=== PATIENT | female | born 1965 | race Caucasian/White ===

== ENCOUNTER 2017-01-02 16:34 | Emergency (ER) | payer SELFPAY ==
--- NOTE | 2017-01-02 17:05 | ED.PDOC ---
History of Present Illness - General Chief Complaint: Diabetic Complaint Stated Complaint: Not feeling well with blood sugar >600 Time Seen by Provider: 01/02/17 17:01 Source: patient, RN notes reviewed, Vital Signs reviewed Exam Limitations: no limitations - History of Present Illness Initial Comments: Patient comes in with c/o of just not feeling well. She has a WALLACE, dizzy, nausea , bloated and swelling. On Thursday and Thursday her blood sugar was >600. She slept most of and this morning. Still feeling bad today so she came in to be seen. She has not checked her blood sugar today. + increased thirst. + SOB , no chest pain, Numbness in her hands. She is only taking Metformin for her Diabetes. Timing/Duration: getting worse - past 5 days Severity: severe Improving Factors: medication Worsening Factors: nothing Associated Symptoms: diaphoresis, headaches, malaise, nausea/vomiting, shortness of breath, weakness Allergies/Adverse Reactions: Allergies Levofloxacin [From Levaquin] Allergy (Intermediate, Verified 08/18/15 10:28) Hives Penicillin G Allergy (Intermediate, Verified 08/18/15 10:28) Rash Home Medications: Ambulatory Orders Hydrocodone-Acetaminophen [Lortab] 1 tab PO PRN PRN 04/09/13 Metformin HCl 1,000 mg PO TID 04/09/13 Review of Systems - Review of Systems Constitutional: States: diaphoresis, malaise. Denies: chills, fever EENTM: States: no symptoms reported Respiratory: States: short of breath. Denies: cough Cardiology: States: edema. Denies: chest pain, palpitations, syncope Gastrointestinal/Abdominal: States: nausea, other - bloating. Denies: abdominal pain, diarrhea, vomiting Genitourinary: States: no symptoms reported Musculoskeletal: States: no symptoms reported Skin: States: no symptoms reported Neurological: States: numbness - bilateral hands after waking up today Endocrine: States: increased thirst, increased urine Hematologic/Lymphatic: States: no symptoms reported Past Medical History (General) - Patient Medical History Hx Seizures: No Hx Stroke: No Hx Dementia: No Hx Asthma: No Hx of COPD: No Hx Cardiac Disorders: No Hx Congestive Heart Failure: No Hx Pacemaker: No Hx Hypertension: No Hx Thyroid Disease: No Hx Diabetes: Yes Hx Gastroesophageal Reflux: No Hx Renal Disease: No Hx Cancer: No Hx of HIV: No Hx Hepatitis C: No Hx MRSA: Yes MRSA Source:: Wound - Vaccination History Hx Tetanus, Diphtheria Vaccination: No Hx Influenza Vaccination: No Hx Pneumococcal Vaccination: Yes - 2013 - Social History Hx Tobacco Use: Yes Hx Alcohol Use: No Hx Substance Use: No Hx Substance Use Treatment: No Hx Depression: No Hx Physical Abuse: No Hx Emotional Abuse: No - Female History Patient : No Family Medical History - Family History Mother Family History: No Known Living Status: Still Living Hx Family Diabetes: Yes Physical Exam - Physical Exam General Appearance: Alert, No apparent distress, Ill Appearing, Obese Neck: non-tender, full range of motion, supple, normal inspection Respiratory: chest non-tender, lungs clear, normal breath sounds, no respiratory distress, no accessory muscle use Cardiovascular/Chest: regular rate, rhythm, no gallop, no murmur Gastrointestinal/Abdominal: normal bowel sounds, non tender, soft, other - obese Extremity: normal range of motion, non-tender, pedal edema - 1+ Bilateral ankles Neurologic: no motor/sensory deficits, alert, normal mood/affect, oriented x 3 Skin Exam: normal color, warm/dry Comments: Vital Signs - 24 hr 01/02/17 16:40 Temperature 98.0 F Pulse Rate [ 76 Left Radial] Respiratory 20 Rate Blood Pressure 136/78 [Left Arm] O2 Sat by Pulse 95 Oximetry Progress - Progress Progress: 01/02/17 19:02 Patient reports she is feeling a little better but still quite sleepy. Will give a 2nd L of NS and see if she continues to improve. She is agreeable with plan. 01/02/17 20:02 Patient reports she is feeling much better. She has been up to the bathroom. She has ~1/2L of saline left. When that is done plan to d/c home with close follow up with her PCP regarding her diabetes. - Results/Orders Results/Orders: Laboratory Tests 01/02/17 01/02/17 01/02/17 17:23 17:23 17:23 WBC 6.3 RBC 4.06 L Hgb 12.0 Hct 36.1 MCV 88.9 MCH 29.5 MCHC 33.2 RDW 14.3 Plt Count 199 MPV 8.1 Absolute Neuts (auto) 3.50 Absolute Lymphs (auto) 2.10 Absolute Monos (auto) 0.50 Absolute Eos (auto) 0.20 Absolute Basos (auto) 0.00 Neutrophils % 55.2 Lymphocytes % 33.7 Monocytes % 7.3 Eosinophils % 3.1 Basophils % 0.7 Sodium 137 Potassium 3.9 Chloride 100 L Carbon Dioxide 29 Anion Gap 11.9 L BUN 8 Creatinine 0.51 L BUN/Creatinine Ratio 15.7 POC Glucose 142 H Random Glucose 173 H Serum Osmolality 276.3 Calcium 8.6 Total Bilirubin 0.3 AST 27 ALT 29 Alkaline Phosphatase 60 Serum Total Protein 7.0 Albumin 3.4 Globulin 3.6 H Albumin/Globulin Ratio 0.9 L Serum Ketones Negative Laboratory Last Values WBC 6.3 K/mm3 (4.8-10.8) 01/02/17: RBC 4.06 M/mm3 (4.20-5.40) L 01/02/17 17: Hgb 12.0 gm/dL (12.0-16.0) 01/02/17 17: Hct 36.1 % (36.0-47.0) 01/02/17 17: MCV 88.9 fl (81.0-99.0) 01/02/17 17: MCH 29.5 pg (27.0-31.0) 01/02/17: MCHC 33.2 g/dL (33.0-37.0) 01/02/17: RDW 14.3 % (11.5-14.5) 01/02/17 17:23 Plt Count 199 K/mm3 (130-400) 01/02/17 17: MPV 8.1 fl (7.40-10.4) 01/02/17 17:23 Absolute Neuts (auto) 3.50 K/uL (1.8-6.8) 01/02/17 17: Absolute Lymphs (auto) 2.10 K/uL (1.0-3.4) 01/02/17 17: Absolute Monos (auto) 0.50 K/uL (0.2-0.8) 01/02/17 17:23 Absolute Eos (auto) 0.20 K/uL (0.0-0.4) 01/02/17 17: Absolute Basos (auto) 0.00 K/uL (0.0-0.1) 01/02/17 17: Neutrophils % 55.2 % (42.0-78.0) 01/02/17 17: Lymphocytes % 33.7 % (20.0-50.0) 01/02/17 17: Monocytes % 7.3 % (2.0-9.0) 01/02/17 17: Eosinophils % 3.1 % (1.0-5.0) 01/02/17 17: Basophils % 0.7 % (0.0-2.0) 01/02/17 17: Sodium 137 mmol/L (135-145) 01/02/17 17: Potassium 3.9 mmol/L (3.6-5.0) 01/02/17 17: Chloride 100 mmol/L (101-111) L 01/02/17 17: Carbon Dioxide 29 mmol/L (21-31) 01/02/17 17: Anion Gap 11.9 (12-18) L 01/02/17 17: BUN 8 mg/dL (7-18) 01/02/17 17: Creatinine 0.51 mg/dL (0.6-1.3) L 01/02/17 17: BUN/Creatinine Ratio 15.7 (10-20) 01/02/17 17: POC Glucose 142 mg/dL (70-105) H 01/02/17 17: Random Glucose 173 mg/dL (70-105) H 01/02/17 17: Serum Osmolality 276.3 mOsm/L (275-295) 01/02/17 17: Calcium 8.6 mg/dL (8.4-10.2) 01/02/17 17: Total Bilirubin 0.3 mg/dL (0.2-1.0) 01/02/17 17: AST 27 IU/L (10-42) 01/02/17 17: ALT 29 IU/L (10-60) 01/02/17 17: Alkaline Phosphatase 60 IU/L (42-121) 01/02/17 17:23 Serum Total Protein 7.0 gm/dL (6.4-8.2) 01/02/17 17: Albumin 3.4 g/dl (3.2-5.5) 01/02/17 17:23 Globulin 3.6 gm/dL (2.3-3.5) H 01/02/17 17:23 Albumin/Globulin Ratio 0.9 (1.1-1.9) L 01/02/17 17:23 Urine Color Yellow (Yellow) 01/02/17 20:35 Urine Appearance Clear (Clear) 01/02/17 20:35 Urine pH 8.5 (4.5-7.8) H 01/02/17 20:35 Ur Specific [place] 1.015 (1.005-1.030) 01/02/17 20:35 Urine Protein 30 mg/dL 01/02/17 20:35 Urine Glucose (UA) 100 mg/dL (Negative) H 01/02/17 20:35 Urine Ketones Trace mg/dL (NEGATIVE) 01/02/17 20:35 Urine Blood Negative (Negative) 01/02/17 20:35 Urine Nitrite Negative 01/02/17 20:35 Urine Bilirubin Small (NEGATIVE) H 01/02/17 20:35 Urine Urobilinogen >= 8.0 mg/dL (0.2-1.0) H 01/02/17 20:35 Ur Leukocyte Esterase Negative (Negative) 01/02/17 20:35 Urine RBC 0-1 /hpf 01/02/17 20:35 Urine WBC 0-1 /hpf 01/02/17 20:35 Ur Epithelial Cells 5-10 /hpf 01/02/17 20:35 Urine Bacteria 1+ 01/02/17 20:35 Urine Mucus Small 01/02/17 20:35 Serum Ketones Negative 01/02/17 17:23 Departure - Departure Clinical Impression: Dehydration Diabetes mellitus Qualifiers: Diabetes mellitus type: type 2 Diabetes mellitus complication status: without complication Qualified Code(s): E11.9 - Type 2 diabetes mellitus without complications Time of Disposition: 20:34 Disposition: Discharge to Home or Self Care Condition: Good Departure Forms: ED Discharge - Pt. Copy, Patient Portal Self Enrollment Instructions: Type 2 Diabetes, DI for Dehydration -- Adult Diet: diabetic diet Activity: increase activity as tolerated Referrals: ЕКАТЕРИНА BRADFORD [Primary Care Provider] - 1-2 Days Home Medications: Ambulatory Orders Hydrocodone-Acetaminophen [Lortab] 1 tab PO PRN PRN 04/09/13 Metformin HCl 1,000 mg PO TID 09/28/13 Additional Instructions: Continue double dose of Metformin until follow up.
[2017-01-02] MEDS ORDERED: SODIUM CHLORIDE 0.9% 1000ML 1,000 ML IVS ONE ×2 (17:08→19:01)
[2017-01-02] MEDS ORDERED: ONDANSETRON INJ 4 MG/2 ML VIAL IV ONE (17:08)
[2017-01-02 19:38] VITALS: O2SAT 95
[2017-01-02 21:13] VITALS: BP 135/84; TEMP 97.8
== END 2017-01-02 21:05 | disposition home or self-care (01) ==
LOC: ER 16:34
DX: E86.0 Dehydration (principal); E11.9 Type 2 diabetes mellitus without complications; R06.02 Shortness of breath; Z79.84 Long term (current) use of oral hypoglycemic drugs; Z88.1 Allergy status to other antibiotic agents; Z87.891 Personal history of nicotine dependence
CPT/HCPCS: 36415; 80053; 81001; 82009; 82948; 85025; J2405; J7030

== ENCOUNTER 2018-02-04 10:15 | Emergency (ER) | payer SELFPAY ==
[2018-02-04 10:26] VITALS: BP 148/90
--- NOTE | 2018-02-04 11:13 | ED.PDOC ---
History of Present Illness - General Chief Complaint: ENT Problem Stated Complaint: Sore throat Time Seen by Provider: 02/04/18 11:05 Source: patient Exam Limitations: no limitations - History of Present Illness Initial Comments: Ling Yanez 52 y/o female came to ER with achy throat 2 days ago .Had seen primary Md was prescribed Cipro and had taken it last 2 days not better.No fever ,but hurts to swallow.No N/V. Timing/Duration: gradual, other - see hpi Severity: moderate EENT Location: throat Presenting Symptoms: achy throat Improving Factors: nothing Worsening Factors: eating Associated Symptoms: other - see hpi Allergies/Adverse Reactions: Allergies Levofloxacin [From Levaquin] Allergy (Intermediate, Verified 08/18/15 10:28) Hives Penicillin G Allergy (Intermediate, Verified 08/18/15 10:28) Rash Home Medications: Ambulatory Orders Hydrocodone-Acetaminophen [Lortab] 1 tab PO PRN PRN 04/09/13 Metformin HCl 1,000 mg PO TID 04/09/13 Review of Systems - Review of Systems Constitutional: States: no symptoms reported EENTM: States: see HPI Respiratory: States: no symptoms reported Cardiology: States: no symptoms reported Gastrointestinal/Abdominal: States: no symptoms reported Genitourinary: States: no symptoms reported Skin: States: no symptoms reported All other Systems: Reviewed and Negative, No Change from Baseline Past Medical History (General) - Patient Medical History Hx Seizures: No Hx Stroke: No Hx Dementia: No Hx Asthma: No Hx of COPD: No Hx Cardiac Disorders: No Hx Congestive Heart Failure: No Hx Pacemaker: No Hx Hypertension: No Hx Thyroid Disease: No Hx Diabetes: Yes Hx Gastroesophageal Reflux: No Hx Renal Disease: No Hx Cancer: No Hx of HIV: No Hx Hepatitis C: No Hx MRSA: Yes MRSA Source:: Wound Surgical History: other - - Vaccination History Hx Tetanus, Diphtheria Vaccination: No Hx Influenza Vaccination: No Hx Pneumococcal Vaccination: Yes - 2013 - Social History Hx Tobacco Use: Yes Hx Alcohol Use: No Hx Substance Use: Yes Hx Substance Use Treatment: No Hx Depression: No Hx Physical Abuse: No Hx Emotional Abuse: No - Female History Patient : No Family Medical History - Family History Mother Family History: No Known Living Status: Still Living Hx Family Diabetes: Yes - multiple family members Hx Family Cancer: Yes - throat-dad Physical Exam - Physical Exam General Appearance: Alert, Comfortable, No apparent distress Eye Exam: bilateral normal Ear Exam: bilateral ear: auricle normal, canal normal, TM normal Nasal Exam: normal inspection Throat Exam: normal mouth inspection, tonsillar exudate - left side Neck: non-tender, full range of motion, supple, normal inspection, trachea midline Cardiovascular/Respiratory: regular rate, rhythm, no M/R/G, normal peripheral pulses, no JVD, normal breath sounds Abdominal Exam: non-tender, no organomegaly Neurologic: no motor/sensory deficits, alert, oriented x 3 Skin Exam: normal color, warm/dry Progress - Progress Progress: 02/04/18 11:16 Laboratory Tests 02/04/18 10:40 Group A Strep Rapid Negative 02/04/18 11:16 Vital Signs - 8 hr 02/04/18 10:23 Temperature 98.7 F Pulse Rate [ 90 Left Radial] Respiratory 20 Rate Blood Pressure 148/90 [Right Arm] O2 Sat by Pulse 94 L Oximetry Departure - Departure Clinical Impression: Tonsillitis Time of Disposition: 11:18 Disposition: Discharge to Home or Self Care Condition: Good Departure Forms: ED Discharge - Pt. Copy, Patient Portal Self Enrollment Instructions: Sore Throat, Adult (DC) Referrals: ЕКАТЕРИНА BRADFORD [Primary Care Provider] - 1-2 Weeks Home Medications: Ambulatory Orders Hydrocodone-Acetaminophen [Lortab] 1 tab PO PRN PRN 04/09/13 Metformin HCl 1,000 mg PO TID 04/09/13 Additional Instructions: Finish your oral antibiotics prescribed by your md and continue with salt water gargle;may take Tylenol 500mg every 6 hours as needed for pain
[2018-02-04] MEDS ORDERED: DEXAMETHASONE INJ 4 MG/ML VIAL IM ONE (11:18)
[2018-02-04 11:48] VITALS: TEMP 98; O2SAT 95
== END 2018-02-04 11:42 | disposition home or self-care (01) ==
LOC: ER 10:15
DX: J03.90 Acute tonsillitis, unspecified (principal); Z88.0 Allergy status to penicillin; Z87.891 Personal history of nicotine dependence
CPT/HCPCS: 87070; 87880; J1100

== ENCOUNTER → 2018-05-25 | Outpatient (CLI) | payer OTHER ==
--- NOTE | 2018-05-26 12:38 | MAM ---
EXAM DESCRIPTION: 3D Screening BILATERAL : Digital Mammography. CLINICAL HISTORY: 52 years Female SCREENING . No complaints or personal history of breast cancer. Mother with breast cancer. Remote family history of breast cancer. Postmenopausal. Childbirth. No HRT. Lifetime risk of developing breast cancer (Tyrer-Cuzick model)(%): 14.0. COMPARISON: Baseline study at this facility. TECHNIQUE: Bilateral CC and MLO projection full-field images, digital tomosynthesis mammographic technique. Bilateral digital 2-D full-field MLO images. CAD not available for tomosynthesis or 2-D images. FINDINGS: The breast parenchymal density pattern is: Scattered areas of fibroglandular density. No skin thickening or nipple retraction. Left axillary lymph nodes. No new focal, stellate mass or density, focal asymmetry , and no suspicious microcalcifications bilaterally. IMPRESSION: Benign exam. BIRAD CATEGORY: 2 BENIGN FINDINGS. RECOMMENDATIONS: FOLLOW UP: Routine digital bilateral mammographic screening, one year interval from May 2018. Written communication explaining the IMPRESSION and follow-up, will be mailed to the patient and referring health care provider. According to the [employer], yearly mammograms are recommended starting at age 40 and continuing as long as a woman is in good health. Any breast change noted on a breast self-exam should be reported promptly to the patient's healthcare provider. Breast MRI is recommended for women with an approximately 20-25% or greater lifetime risk of breast cancer, including women with a strong family history of breast or ovarian cancer and women who have been treated for Hodgkin's disease. A negative mammographic report should not delay tissue diagnosis in patients with significant clinical history or physical findings. Extremely dense breast tissue limits the sensitivity of digital mammography. Electronically signed by: Antonio Augustin MD 05/26/2018 12:36 PM [facility]
== END ==
LOC: MAMMO 09:38
PROVIDERS: ATTEND Family Medicine
DX: Z12.31 Encounter for screening mammogram for malignant neoplasm of breast (principal)

== ENCOUNTER 2018-08-10 05:19 | Inpatient (IN) | payer SELFPAY ==
[2018-08-10] MEDS ORDERED: IPRATROPIUM/ALBUTEROL 3 ML VIAL NEB ONE ×4 (05:22→06:56)
--- NOTE | 2018-08-10 06:03 | RAD ---
EXAM: Two view chest. INDICATION: Shortness of breath. COMPARISON: Chest x-ray: 05/28/2015. FINDINGS: Cardiac silhouette: Unremarkable. Sanjuanita: Unremarkable. Lobar consolidation: None. Pleural effusion: None. Pneumothorax: None. Other: None. Bones: Unremarkable. Other: None. IMPRESSION: 1. No acute cardiopulmonary process. Electronically signed by: Isaac Andrew MD 08/10/2018 6:02 AM [facility] Workstation: [id number]
[2018-08-10] MEDS ORDERED: IBUPROFEN 200 MG TAB PO ONE (06:55)
--- NOTE | 2018-08-10 06:58 | ED.PDOC ---
History of Present Illness - General Source: patient Exam Limitations: no limitations - History of Present Illness Initial Comments: the patient a 53-year-old female presenting to the emergency room secondary to shortness of breath as well as fevers and body aches for the last 24 hours. She has had a cough that is nonproductive. No history of significant lung disease according to her. No chest pain. She does have a mild sore throat. No syncope or near syncope. Initial oxygen saturations ranged from 80-86% on room air. Timing/Duration: 24 hours Severity: moderate Improving Factors: nothing Worsening Factors: nothing Associated Symptoms: cough, diaphoresis, fever/chills, loss of appetite, malaise, shortness of breath <Juancarlos Kim - Last Filed: 08/10/18 06:56> <Bar Vivar - Last Filed: 08/10/18 08:36> - General Chief Complaint: Respiratory Problem Stated Complaint: SOB, congestion, vomiting, chest discomfort, sinus Time Seen by Provider: 08/10/18 05:22 - History of Present Illness Allergies/Adverse Reactions: Allergies Levofloxacin [From Levaquin] Allergy (Intermediate, Verified 08/18/15 10:28) Hives Penicillin G Allergy (Intermediate, Verified 08/18/15 10:28) Rash Home Medications: Ambulatory Orders HYDROcodone 10MG/APAP 325MG [[place] 10/325] 1 tab PO PRN 08/10/18 Metformin HCl 1,000 mg PO BID 08/10/18 Review of Systems - Review of Systems Constitutional: States: chills, diaphoresis, fever, malaise EENTM: States: nose congestion, throat pain Respiratory: States: cough, short of breath Cardiology: States: no symptoms reported Gastrointestinal/Abdominal: States: nausea Genitourinary: States: no symptoms reported Musculoskeletal: States: no symptoms reported - generalized body aches Skin: States: no symptoms reported Neurological: States: headache Endocrine: States: no symptoms reported All other Systems: No Change from Baseline <Juancarlos Kim - Last Filed: 08/10/18 06:56> Past Medical History (General) - Patient Medical History Hx Seizures: No Hx Stroke: No Hx Dementia: No Hx Asthma: No Hx of COPD: No Hx Cardiac Disorders: No Hx Congestive Heart Failure: No Hx Pacemaker: No Hx Hypertension: No Hx Thyroid Disease: No Hx Diabetes: Yes Hx Gastroesophageal Reflux: No Hx Renal Disease: No Hx Cancer: No Hx of HIV: No Hx Hepatitis C: No Hx MRSA: Yes MRSA Source:: Wound Surgical History: other - Vaccination History Hx Tetanus, Diphtheria Vaccination: Yes Hx Influenza Vaccination: No Hx Pneumococcal Vaccination: Yes - Social History Hx Tobacco Use: Yes Hx Alcohol Use: No Hx Substance Use: Yes Hx Substance Use Treatment: No Hx Depression: No Hx Physical Abuse: No Hx Emotional Abuse: No - Female History Patient : No <Juancarlos Kim - Last Filed: 08/10/18 06:56> Family Medical History - Family History Mother Family History: No Known Living Status: Still Living Hx Family Diabetes: Yes - multiple family members Hx Family Cancer: Yes - throat-dad <Juancarlos Kim - Last Filed: 08/10/18 06:56> Physical Exam - Physical Exam General Appearance: Alert, Anxious Eye Exam: bilateral normal Ears, Nose, Throat: nasal congestion, pharyngeal erythema Neck: non-tender, full range of motion Respiratory: lungs clear, normal breath sounds, no respiratory distress, no accessory muscle use Cardiovascular/Chest: normal peripheral pulses, regular rate, rhythm, no edema, tachycardia Peripheral Pulses: radial,right: 2+, radial,left: 2+ Gastrointestinal/Abdominal: non tender, soft Rectal Exam: deferred Back Exam: no CVA tenderness, no vertebral tenderness Extremity: non-tender, normal inspection, no pedal edema, normal capillary refill Neurologic: claims adjuster II-XII nml as tested, alert, normal mood/affect, oriented x 3 Skin Exam: normal color Comments: Vital Signs - 24 hr 08/10/18 08/10/18 08/10/18 05:24 05:28 06:00 Temperature 100.9 F H Pulse Rate 105 H Pulse Rate [ 124 H 113 H monitor] Respiratory 24 28 H Rate Blood Pressure 139/113 113/85 [Left Arm] O2 Sat by Pulse 96 93 L Oximetry <Juancarols Kim - Last Filed: 08/10/18 06:56> Progress - Progress Progress: 08/10/18 06:58 the patient is a 53-year-old female presenting to the emergency room secondary to shortness of breath and fevers. Chest x-ray is reassuring however the patient does have some significant hypoxia upon arrival. She has received a DuoNeb treatment and will be receiving another. If she is unable to hold her oxygen levels with breathing treatments and she will likely need to be put in for supplemental oxygen while continuing her Tamiflu. Some laboratory work is still pending at this time. The patient will be handed off to the oncoming ER physician. <Juancarlos Kim - Last Filed: 08/10/18 06:56> - Results/Orders Results/Orders: 08/10/18 05:45 BLOOD CULTURE Stat EKG STAT 08/10/18 07:27 ABG [Arterial Blood Gas] Stat 08/10/18 08:32 Azithromycin IV [Zithromax IV] 500 mg Sodium Chloride 0.9% 250Ml [NS 250ml] 250 ml IVPB ONCE 08/10/18 08:34 ED Intent to Admit Routine Laboratory Results - last 24 hr 08/10/18 08/10/18 08/10/18 05:45 05:45 05:45 WBC 9.0 RBC 5.04 Hgb 14.7 Hct 44.8 MCV 88.9 MCH 29.2 MCHC 32.9 L RDW 14.0 Plt Count 195 MPV 8.0 Absolute Neuts (auto) 7.90 H Absolute Lymphs (auto) 0.60 L Absolute Monos (auto) 0.60 Absolute Eos (auto) 0.00 Absolute Basos (auto) 0.00 Neutrophils % 87.2 H Lymphocytes % 6.4 L Monocytes % 6.2 Eosinophils % 0.0 L Basophils % 0.2 PT 9.3 INR 0.93 PTT (SP) 26.5 D-Dimer, Quantitative 0.50 H pCO2 pO2 HCO3 ABG pH ABG O2 Saturation ABG Base Excess ABG Deoxyhemoglobin Oxyhemoglobin % Carboxyhemoglobin % Methemoglobin % Sat Calc Total Hemoglobin Sodium 130 L Potassium 4.0 Chloride 96 L Carbon Dioxide 25 Anion Gap 13.0 BUN 8 Creatinine 0.50 L BUN/Creatinine Ratio 16.0 Random Glucose 276 H Serum Osmolality Not Reportable Lactic Acid Calcium 8.7 Total Bilirubin 0.4 AST 37 ALT 21 Alkaline Phosphatase 69 Creatine Kinase 923 H* CK-MB (CK-2) 4.8 H* CK-MB (CK-2) % 0.52 Troponin I < 0.02 B-Natriuretic Peptide 44.8 Serum Total Protein 8.3 H Albumin 3.8 Globulin 4.5 H Albumin/Globulin Ratio 0.8 L 01/29/19 01/29/19 05:45 07:40 WBC RBC Hgb Hct MCV MCH MCHC RDW Plt Count MPV Absolute Neuts (auto) Absolute Lymphs (auto) Absolute Monos (auto) Absolute Eos (auto) Absolute Basos (auto) Neutrophils % Lymphocytes % Monocytes % Eosinophils % Basophils % PT INR PTT (SP) D-Dimer, Quantitative pCO2 47 H pO2 61 L HCO3 25.4 ABG pH 7.360 ABG O2 Saturation 90.5 L ABG Base Excess 0.2 ABG Deoxyhemoglobin 9.3 H Oxyhemoglobin % 88.2 L Carboxyhemoglobin % 0.7 Methemoglobin % Sat 1.9 H Calc Total Hemoglobin 11.0 L Sodium Potassium Chloride Carbon Dioxide Anion Gap BUN Creatinine BUN/Creatinine Ratio Random Glucose Serum Osmolality Lactic Acid 1.2 Calcium Total Bilirubin AST ALT Alkaline Phosphatase Creatine Kinase CK-MB (CK-2) CK-MB (CK-2) % Troponin I B-Natriuretic Peptide Serum Total Protein Albumin Globulin Albumin/Globulin Ratio - EKG/XRAY/CT EKG: Sinus, Tachy, nonspecific ST T wave Chg Comments: HR-105 XRAY: chest - no acute abnormalities CT Ordered: Yes - out of order CT-machine <Bar Vivar - Last Filed: 08/10/18 08:36> Departure <Juancarlos Kim - Last Filed: 08/10/18 06:56> - Departure Time of Disposition: 08:34 <Bar Vivar - Last Filed: 08/10/18 08:36> - Departure Clinical Impression: Influenza, Hypoxia Disposition: Admit Patient Condition: Fair Departure Forms: Patient Portal Self Enrollment Referrals: ЕКАТЕРИНА BRADFORD [Primary Care Provider] - 1-2 Weeks Home Medications: Ambulatory Orders HYDROcodone 10MG/APAP 325MG [[place] 10/325] 1 tab PO PRN 08/10/18 Metformin HCl 1,000 mg PO BID 08/10/18 Decision To Admit - Decistion To Admit Decision to Admit Reason: Admit from ER Decision to Admit Date: 08/10/18 - D/W gavin Vora-ANP/hospitalist Decision to Admit Time: 08:33 <Bar Vivar - Last Filed: 08/10/18 08:36>
[2018-08-10] MEDS ORDERED: OSELTAMIVIR 75 MG CAP PO ONE (07:40)
[2018-08-10] MEDS ORDERED: AZITHROMYCIN IV 500 MG in SODIUM CHLORIDE 0.9% 250ML 250 ML IVPB ONE (08:32)
[2018-08-10] MEDS ORDERED: AZITHROMYCIN IV 500 MG VIAL IVPB ONE (08:36)
[2018-08-10] MEDS ORDERED: LEVALBUTEROL NEBS 1.25 MG/3 ML VIAL NEB ONE (08:36)
[2018-08-10] MEDS ORDERED: SODIUM CHLORIDE 0.9% 250ML 250 ML ONE (08:37)
--- NOTE | 2018-08-10 08:42 | HP ---
SUPERVISING PHYSICIAN: Rock Wood MD CHIEF COMPLAINT: Shortness of breath. HISTORY OF PRESENT ILLNESS: This is a 53-year-old female who came to the Emergency Room early this morning due to shortness of breath, fever and body aches over the last 24 hours or so. She states yesterday is when she started feeling ill. She states her fever had been up as high as 103. She states her boyfriend had flu for the last 10 days or so. When she came in, she was noted to be hypoxic with O2 saturation anywhere from 80% to 86%. The patient has a history of smoking usually one pack per day, however, starting with the New Year, she has gone down to about one cigarette per day. Her labs were reviewed and she has a normal white count, but she does have a left shift of 87%. She has a normal lactate at 1.2. CK is elevated at 923. Sodium 130, potassium 4.0, chloride 96, CO2 25. BUN and creatinine are normal. Glucose elevated at 276. Calcium 8.7. Due to the hypoxia, she was referred for admission. At time of examination, the patient is visibly dyspneic, but alert and oriented and pleasant. PAST MEDICAL HISTORY: 1. Left knee pain secondary to osteoarthritis. 2. Diabetes. PAST SURGICAL HISTORY: 1. I&D on her chest from MRSA infection. 2. Right total knee arthroplasty. CURRENT MEDICATIONS: 1. Metformin. 2. Hydrocodone. ALLERGIES: PENICILLIN, LEVAQUIN. FAMILY HISTORY: Mother has breast cancer and had bilateral mastectomies. Brother of unknown cause. She does not know her father's history. SOCIAL HISTORY: The patient has a history of smoking one pack per day and has gone down on this to one cigarette per day. No significant alcohol or illicit drug use. REVIEW OF SYSTEMS: CONSTITUTIONAL: Positive for fever and chills. No recent weight loss or weight gain. Positive for malaise. HEENT: No headaches, vision changes, ear pain or throat pain. She does have nasal congestion. RESPIRATORY: Positive for cough. No hemoptysis or pleuritic chest pain. Positive for shortness of breath. CARDIOVASCULAR: No chest pain, palpitations or peripheral edema. GASTROINTESTINAL: No nausea, vomiting, diarrhea, constipation or abdominal pain. GENITOURINARY: No dysuria, frequency or flank pain. HEMATOLOGIC: No easy bruising and no transfusion reaction. MUSCULOSKELETAL: Left knee pain, but no other joint pain, no joint swelling. No muscle cramps. ENDOCRINE: No polydipsia, polyuria or polyphagia. No heat or cold intolerance. PHYSICAL EXAMINATION: VITAL SIGNS: Blood pressure 130/71. Heart rate 101. Respiratory rate 24. Temperature 100.4. Oxygen saturation 93% on 2 liters via nasal cannula. GENERAL: Ms. Yanez is a 53-year-old female with mild to moderate respiratory distress as above. NEUROLOGIC: The patient is alert and oriented. CHEST: Lungs are diminished in the bases with mild bibasilar rales. There is no active wheezing. CARDIOVASCULAR: Regular rate and rhythm, which is sinus tachycardia. ABDOMEN: Soft, obese. Positive bowel sounds. No tenderness to palpation. GENITOURINARY: Deferred. EXTREMITIES: Lower extremities with no edema. Pulses 2+. Capillary refill is less than 2 seconds. DIAGNOSTICS: Labs and films are as discussed in history of present illness. ASSESSMENT: 1. Acute bronchitis. 2. Influenza type A. 3. Hypoxemic respiratory failure. 4. Diabetes mellitus, type 2. PLAN: We will admit the patient and place on supplemental oxygen and start on some breathing treatments. She is not actively wheezing, so I am not going to start on any steroids. I am going to put her on scheduled Tamiflu and empiric antibiotics for bacterial bronchitis. We will also order DVT and GI ulcer prophylaxis as well. [id number]
[2018-08-10] MEDS: IV SET AND CAP CHANGE INJ INJ SCH (10:30)
[2018-08-10] MEDS ORDERED: HYDROcodone 10MG/APAP 325MG 1 EA TAB PO SCH (12:30)
[2018-08-10] MEDS: HYDROcodone 10MG/APAP 325MG 1 EA TAB PO PRN ×2 (13:14→19:40)
[2018-08-10] MEDS: ENOXAPARIN SODIUM 40 MG/0.4 ML SYG SUBCU SCH (13:14)
[2018-08-10] MEDS: IPRATROPIUM/ALBUTEROL 3 ML VIAL INH SCH ×3 (13:30→20:17)
[2018-08-10] MEDS ORDERED: MORPHINE SULFATE INJ 10 MG/ML VIAL ONE (14:53)
[2018-08-10] MEDS: MORPHINE SULFATE INJ 10 MG/ML VIAL IV PRN ×3 (15:07→23:39)
[2018-08-10] MEDS: metFORMIN HCL 500 MG TAB PO SCH (18:12)
[2018-08-10] MEDS: OSELTAMIVIR 75 MG CAP PO SCH (20:35)
[2018-08-10] MEDS: SODIUM CHLORIDE 0.9% (FLUSH) 10 ML SYG IV PRN (23:40)
[2018-08-11] MEDS: IPRATROPIUM/ALBUTEROL 3 ML VIAL INH SCH ×7 (00:09→23:53)
[2018-08-11] MEDS: HYDROcodone 10MG/APAP 325MG 1 EA TAB PO PRN ×4 (01:11→15:27)
[2018-08-11] MEDS: MORPHINE SULFATE INJ 10 MG/ML VIAL IV PRN ×4 (04:38→20:21)
[2018-08-11] MEDS: SODIUM CHLORIDE 0.9% (FLUSH) 10 ML SYG IV PRN ×2 (04:40→20:04)
[2018-08-11] MEDS ORDERED: SODIUM CHLORIDE 0.9% 250ML 250 ML ONE (07:16)
[2018-08-11] MEDS ORDERED: AZITHROMYCIN IV 500 MG VIAL IVPB ONE (07:17)
--- NOTE | 2018-08-11 07:20 | RAD ---
EXAM: Single view chest. INDICATION: Bronchitis. COMPARISON: Chest x-ray: 08/10/2018. FINDINGS: An airspace opacity has developed along the left midlung. The heart is normal in size. There is no pneumothorax or pleural effusion. The bones are unchanged. IMPRESSION: Airspace opacity along the left midlung, which may represent pneumonia. Electronically signed by: Isaac Andrew MD 08/11/2018 7:18 AM [facility] Workstation: [id number]
[2018-08-11] MEDS: metFORMIN HCL 500 MG TAB PO SCH ×2 (08:05→17:52)
[2018-08-11] MEDS: OSELTAMIVIR 75 MG CAP PO SCH ×2 (09:33→20:22)
[2018-08-11] MEDS: AZITHROMYCIN IV 500 MG in SODIUM CHLORIDE 0.9% 250ML 250 ML IVPB SCH (09:34)
[2018-08-11] MEDS ORDERED: cefTRIAXone SODIUM 1 GM in SODIUM CHL 0.9% 50ML MIN-BAG+ 50 ML IVPB SCH (10:00)
[2018-08-11] MEDS: ENOXAPARIN SODIUM 40 MG/0.4 ML SYG SUBCU SCH (10:47)
[2018-08-11] MEDS: IBUPROFEN 400 MG TAB PO PRN ×2 (10:54→20:04)
[2018-08-11] MEDS ORDERED: cefTRIAXone SODIUM 1 GM VIAL ONE (11:57)
[2018-08-11] MEDS ORDERED: SODIUM CHL 0.9% 50ML MIN-BAG+ 50 ML IVPB ONE (11:57)
[2018-08-11] MEDS: cefTRIAXone SODIUM 1 GM in SODIUM CHL 0.9% 50ML MIN-BAG+ 50 ML IVPB SCH (12:00)
--- NOTE | 2018-08-11 16:32 | PN ---
DATE: 08/11/18 SUPERVISING PHYSICIAN: Rock Wood M.D. SUBJECTIVE: The patient is lying in bed. She is still quite short of breath and very fatigued and weak, but she does say she feels some better since yesterday. She also feels better since they have been doing percussion on her chest. She denies any nausea or vomiting. OBJECTIVE: VITAL SIGNS: Temperature 99.7, heart rate 114, blood pressure 130/79, respiratory rate 28, O2 sat is 93% on 2 liters nasal cannula. RESPIRATORY: Diminished breath sounds throughout with some scattered rhonchi. No wheezing noted. The patient is tachypneic and has to speak in short phrases due to her shortness of breath. CARDIAC: Tachycardic rate, regular rhythm. GASTROINTESTINAL: Abdomen is soft, nondistended, non-tender. Bowel sounds are positive. NEUROLOGIC: She is awake, alert and oriented times three. LABORATORY: WBC 5.1, hemoglobin 14.2, hematocrit 43.1. Sodium 131, potassium 4.1, chloride 97, carbon dioxide 24, BUN 16, creatinine 0.42. Blood glucose has run between 179 and 305. Chest x-ray shows airspace opacity along the left mid lung which may represent pneumonia. All other labs and films have been reviewed via the EMR. ASSESSMENT: 1. Sepsis related to left sided pneumonia with an admitting temperature of 100.9, respiratory rate 28 and heart rate 110. 2. Influenza type A. 3. Hypoxemic respiratory failure most likely secondary to #1. 4. Diabetes mellitus, type 2. PLAN: We will continue present supportive care. I will repeat her lab in the morning. I have initiated the pneumonia guidelines. She is presently on azithromycin and I have added Rocephin. I will also give her an extra liter of fluids if her heart rate continues to be high and she may be somewhat dehydrated. Will do another chest x-ray tomorrow. Encourage good pulmonary hygiene. We will continue to monitor closely and follow as needed. #[id number] [facility]
[2018-08-11] MEDS: SODIUM CHLORIDE 0.9% 1000ML 1,000 ML IVS PRN (20:03)
[2018-08-11] MEDS ORDERED: INSULIN LISPRO 100 UNITS/ML PEN SUBCU ONE (21:12)
[2018-08-12] MEDS: MORPHINE SULFATE INJ 10 MG/ML VIAL IV PRN ×2 (00:01→03:30)
[2018-08-12] MEDS: SODIUM CHLORIDE 0.9% 1000ML 1,000 ML IVS PRN ×3 (03:30→20:16)
[2018-08-12] MEDS: HYDROcodone 10MG/APAP 325MG 1 EA TAB PO PRN ×4 (04:36→20:14)
[2018-08-12] MEDS: IPRATROPIUM/ALBUTEROL 3 ML VIAL INH SCH ×5 (04:38→20:58)
[2018-08-12] MEDS ORDERED: SODIUM CHL 0.9% 50ML MIN-BAG+ 50 ML IVPB ONE (07:30)
[2018-08-12] MEDS ORDERED: SODIUM CHLORIDE 0.9% 250ML 250 ML ONE (07:30)
[2018-08-12] MEDS ORDERED: AZITHROMYCIN IV 500 MG VIAL IVPB ONE (07:31)
[2018-08-12] MEDS ORDERED: cefTRIAXone SODIUM 1 GM VIAL ONE (07:31)
--- NOTE | 2018-08-12 07:48 | RAD ---
EXAM DESCRIPTION: Chest,2 Views CLINICAL HISTORY: 53 years Female pna COMPARISON: None TECHNIQUE: PA and lateral views of the chest are obtained. FINDINGS: Heart: The heart is normal in size and configuration. Vasculature: The aorta is unremarkable. The pulmonary vascularity is normal. Mediastinum: Unremarkable otherwise. No evidence of mass or adenopathy. Lungs: There is minimal patchy density projecting in the right infrahilar region on the frontal projection which is probably in the anterior aspect of the right lower lobe on the lateral view. There is minimal discoid atelectasis or scarring in the lower lungs. Pleural spaces: There are no pleural effusions. There are no pneumothoraces. Osseous structures: There is no evidence of acute fracture, osseous destruction or osteoblastic lesions. There are mild degenerative changes in the spine. Tubes and catheters: None. Upper abdomen: No acute findings. IMPRESSION: Suspect minimal patchy atelectasis and/or pneumonia in the right lower lobe as described. Remainder of findings as described above. Electronically signed by: Monika Rosario MD 08/12/2018 7:46 AM [facility]
[2018-08-12] MEDS: OSELTAMIVIR 75 MG CAP PO SCH ×2 (09:31→20:14)
[2018-08-12] MEDS: AZITHROMYCIN IV 500 MG in SODIUM CHLORIDE 0.9% 250ML 250 ML IVPB SCH (09:31)
[2018-08-12] MEDS: metFORMIN HCL 500 MG TAB PO SCH ×2 (09:36→16:57)
[2018-08-12] MEDS: ENOXAPARIN SODIUM 40 MG/0.4 ML SYG SUBCU SCH (10:44)
[2018-08-12] MEDS: cefTRIAXone SODIUM 1 GM in SODIUM CHL 0.9% 50ML MIN-BAG+ 50 ML IVPB SCH (12:48)
[2018-08-12] MEDS ORDERED: FUROSEMIDE INJ 20 MG/2 ML VIAL IV ONE (13:11)
[2018-08-12] MEDS ORDERED: ALBUTEROL SULFATE 2.5 MG/3 ML VIAL NEB PRN (13:11)
[2018-08-12] MEDS ORDERED: FUROSEMIDE INJ 20 MG/2 ML VIAL ONE (16:43)
[2018-08-12] MEDS: IBUPROFEN 400 MG TAB PO PRN (16:57)
[2018-08-12] MEDS: SERTRALINE HCL 50 MG TAB PO SCH (20:00)
[2018-08-12] MEDS: ALPRAZolam 0.25 MG TAB PO PRN (20:14)
[2018-08-13] MEDS: IPRATROPIUM/ALBUTEROL 3 ML VIAL INH SCH ×6 (00:25→20:09)
[2018-08-13] MEDS: HYDROcodone 10MG/APAP 325MG 1 EA TAB PO PRN ×3 (02:13→12:37)
[2018-08-13] MEDS: SODIUM CHLORIDE 0.9% 1000ML 1,000 ML IVS PRN ×3 (02:59→19:45)
[2018-08-13] MEDS ORDERED: SODIUM CHLORIDE 0.9% 250ML 250 ML ONE (07:39)
[2018-08-13] MEDS ORDERED: AZITHROMYCIN IV 500 MG VIAL IVPB ONE (07:40)
--- NOTE | 2018-08-13 08:05 | PN ---
SUPERVISING PHYSICIAN: Rock Wood M.D. DATE: 08/12/18 SUBJECTIVE: The patient is lying in bed. She is very anxious. Her grandchildren just left to go with their great-grandfather and she is worried about them having flu. She is also worried because her doctor, Dr. Antonio Ashby, she said he lost his license to give her narcotics and she has been on hydrocodone for many years. She is quite worried about getting her prescriptions filled. She is also worried that she is very sick. Otherwise, she complains of some shortness of breath, fever and generalized weakness, but it is somewhat better than previously. She denies any chest pain, nausea or vomiting. OBJECTIVE: VITAL SIGNS: Temperature 98.6. Heart rate 88. Blood pressure 116/66. Respiratory rate 20. O2 saturation 92% on 2 liters nasal cannula. RESPIRATORY: Expiratory wheezing throughout with some scattered rhonchi. Diminished at the bases. She does get slightly tachypneic with exertion and with talking. She has to speak in short phrases due to her shortness of breath. CARDIAC: Regular rate and rhythm. GASTROINTESTINAL: Abdomen is soft, nondistended, nontender. NEUROLOGIC: She is awake, alert and oriented times three. LABORATORY: WBC 3.4, stable hemoglobin and hematocrit of 14.6 and 45.1. Sodium 137, potassium5 .1, chloride 103, carbon dioxide 22, BUN 13, creatinine 0.5, glucose 162. AST 82. Sputum culture is pending. Preliminary blood cultures show no growth after 48 hours. Chest x-ray shows suspect minimal patchy atelectasis and/or pneumonia of the right lower lobe. All other labs and films have been reviewed via the EMR. ASSESSMENT: 1. Sepsis related to bilateral pneumonia with an admitting temperature of 100.9, respiratory rate 28 and heart rate 110. 2. Influenza type A. 3. Hypoxemic respiratory failure most likely secondary to #1. 4. Diabetes mellitus, type 2. 5. Anxiety. 6. Narcotic dependence. PLAN: We will continue present supportive care including good pulmonary hygiene. We will continue her antibiotics as previously ordered and we will monitor her cultures. I have ordered routine lab for in the morning. We will hold on a chest x-ray. Tomorrow, we will need to check on her dosing of [place] at the pharmacy and we will try to get her to her previous outpatient regimen. I have also given her some Xanax for her anxiety and re-started her Zoloft. We will continue to monitor closely and follow as needed. Dr. Wood is the collaborating physician and available for consultation. #[id number] [facility]
[2018-08-13] MEDS: AZITHROMYCIN IV 500 MG in SODIUM CHLORIDE 0.9% 250ML 250 ML IVPB SCH (08:21)
[2018-08-13] MEDS: metFORMIN HCL 500 MG TAB PO SCH ×2 (08:22→17:17)
[2018-08-13] MEDS: SERTRALINE HCL 50 MG TAB PO SCH (08:22)
[2018-08-13] MEDS: OSELTAMIVIR 75 MG CAP PO SCH ×2 (08:22→20:38)
[2018-08-13] MEDS: ENOXAPARIN SODIUM 40 MG/0.4 ML SYG SUBCU SCH (10:35)
[2018-08-13] MEDS: IBUPROFEN 400 MG TAB PO PRN (11:38)
[2018-08-13] MEDS ORDERED: ONDANSETRON INJ 4 MG/2 ML VIAL ONE (11:45)
[2018-08-13] MEDS ORDERED: ONDANSETRON INJ 4 MG/2 ML VIAL IV PRN (11:51)
[2018-08-13] MEDS ORDERED: SODIUM CHL 0.9% 50ML MIN-BAG+ 50 ML IVPB ONE (12:17)
[2018-08-13] MEDS ORDERED: cefTRIAXone SODIUM 1 GM VIAL ONE (12:17)
[2018-08-13] MEDS: ALPRAZolam 0.25 MG TAB PO PRN ×2 (12:37→19:53)
[2018-08-13] MEDS: cefTRIAXone SODIUM 1 GM in SODIUM CHL 0.9% 50ML MIN-BAG+ 50 ML IVPB SCH (12:38)
[2018-08-13] MEDS: IV SET AND CAP CHANGE INJ INJ SCH (12:38)
[2018-08-13] MEDS ORDERED: HYDROcodone 10MG/APAP 325MG 1 EA TAB PO PRN (12:52)
[2018-08-13] MEDS: traMADol HCL 50 MG TAB PO PRN (19:53)
[2018-08-13] MEDS: HYDROcodone 5MG/APAP 325MG 1 EA TAB PO PRN (21:20)
[2018-08-14] MEDS: IPRATROPIUM/ALBUTEROL 3 ML VIAL INH SCH ×6 (04:00→21:08)
[2018-08-14] MEDS: HYDROcodone 5MG/APAP 325MG 1 EA TAB PO PRN ×2 (04:21→13:36)
[2018-08-14] MEDS ORDERED: MAGNESIUM SULFATE PREMIX 2GM 2 GM in PREMIX BAG 1 BAG IVPB ONE (04:52)
[2018-08-14] MEDS ORDERED: MAGNESIUM SULFATE PREMIX 2GM 50 ML IVPB ONE (05:35)
[2018-08-14] MEDS ORDERED: cefTRIAXone SODIUM 1 GM VIAL ONE (08:25)
[2018-08-14] MEDS ORDERED: SODIUM CHL 0.9% 50ML MIN-BAG+ 50 ML IVPB ONE (08:25)
[2018-08-14] MEDS ORDERED: SODIUM CHLORIDE 0.9% 250ML 250 ML ONE (08:25)
[2018-08-14] MEDS ORDERED: AZITHROMYCIN IV 500 MG VIAL IVPB ONE (08:26)
--- NOTE | 2018-08-14 08:38 | RAD ---
EXAM DESCRIPTION: Chest,2 Views CLINICAL HISTORY: pna COMPARISON: 08/12/2018 FINDINGS: Two views of the chest are submitted. There is mild bilateral pulmonary edema. Cardiac silhouette appears normal. No focal parenchymal or pleural disease. No acute bony abnormality. There is no significant pulmonary vascular engorgement. IMPRESSION: Mild pulmonary edema. Otherwise unremarkable. Electronically signed by: Antonio Rhodes 08/14/2018 8:36 AM [facility]
[2018-08-14] MEDS: metFORMIN HCL 500 MG TAB PO SCH ×2 (08:45→16:42)
[2018-08-14] MEDS: AZITHROMYCIN IV 500 MG in SODIUM CHLORIDE 0.9% 250ML 250 ML IVPB SCH (08:45)
[2018-08-14] MEDS: OSELTAMIVIR 75 MG CAP PO SCH ×2 (08:45→20:08)
[2018-08-14] MEDS: SERTRALINE HCL 50 MG TAB PO SCH (08:46)
[2018-08-14] MEDS: ENOXAPARIN SODIUM 40 MG/0.4 ML SYG SUBCU SCH (10:50)
--- NOTE | 2018-08-14 11:11 | PN ---
DATE: 08/13/18 SUPERVISING PHYSICIAN: Rock Wood M.D. SUBJECTIVE: The patient is lying in bed. She has no complaints of chest pain, nausea, vomiting or diarrhea. She is still quite anxious and worried about her grandchildren. Her shortness of breath continues but it has improved and it is mostly just with exertion. She has finally gotten some rest. Earlier today she complained of some nausea and was given Zofran and it helped her. We discussed at length her pain medication. I did verify the notice from pharmacy that she had gotten [place] 10/325 #100 on July 26. She had also received Tramadol 50 mg #120 tablets at that time also. I discussed that she would not be able to get those medications from us on discharge and we would need to wean her off of those. She was okay with Tramadol. Since she has taken such high doses of [place] in the past, we will give her those but those will be decreased and she agreed with that as well. OBJECTIVE: VITAL SIGNS: Temperature 98.2, heart rate 79, blood pressure 154/82, respiratory rate 18. At times she still gets quite tachypneic with speaking, but that has improved. Her O2 sat is 90% on 2 liters nasal cannula. RESPIRATORY: A few expiratory wheezes [place], but mostly rhonchi. She is diminished at the bases and she is tachypneic with speaking but that has improved since yesterday. CARDIAC: Regular rate and rhythm. GASTROINTESTINAL: Abdomen is soft, nondistended, non-tender. Bowel sounds are positive. NEUROLOGIC: She is awake, alert and oriented times three. LABORATORY: WBCs are 3.5, otherwise her CBC is unremarkable. Chemistries show electrolytes to be within normal limits with the exception of her calcium is 7.9 and magnesium is 1.6. Blood sugars have run between 160 and 182. Preliminary blood cultures show no growth after 3 days. Sputum culture is still pending. All other labs and films have been reviewed via the EMR. ASSESSMENT: 1. Sepsis related to bilateral pneumonia with an admitting temperature of 100.9, respiratory rate 28 and heart rate 110. 2. Influenza type A. 3. Hypoxemic respiratory failure most likely secondary to #1. 4. Diabetes mellitus, type 2. 5. Anxiety. 6. Narcotic dependence. PLAN: We will continue present supportive care. I have changed her narcotics where she receives her Tramadol 100 mg every 6 hours. I have decreased her [place] to 5/325. She can have those every 6 hours and the time interval will need to be increased tomorrow as we need to wean her off of her narcotics as Dr. Ashby will not be able to refill her prescriptions. She also has some Xanax with some anxiety issues. She is still quite sick and has had some complaints of shortness of breath as well as nausea, but we will need to get her up and moving in the hallways in the next day or two. Will need to check per Shauna Valadez, Infection Control, and ask her when the patient can come off of isolation from her flu. She will need to ambulate in the halls as much as she can. I will order a chest x-ray in the morning and hold on lab. Encourage good pulmonary hygiene. We will monitor her cultures as they become available. Will continue to monitor closely and follow as needed. #[id number] [facility]
[2018-08-14] MEDS: cefTRIAXone SODIUM 1 GM in SODIUM CHL 0.9% 50ML MIN-BAG+ 50 ML IVPB SCH (12:25)
[2018-08-14] MEDS: ALPRAZolam 0.25 MG TAB PO PRN ×2 (13:37→20:08)
[2018-08-14] MEDS ORDERED: HYDROcodone 5MG/APAP 325MG 1 EA TAB PO PRN (16:13)
[2018-08-14] MEDS ORDERED: LISINOPRIL 10 MG TAB PO ONE (16:25)
[2018-08-14] MEDS ORDERED: LISINOPRIL 10 MG TAB PO SCH (16:30)
[2018-08-14] MEDS ORDERED: methylPREDNISolone SODIUM SUC 125 MG/2 ML VIAL IV ONE (16:34)
[2018-08-14] MEDS ORDERED: NITROGLYCERIN 0.4 MG/HR PATCH TOP ONE (16:35)
[2018-08-14] MEDS: NITROGLYCERIN 0.2 MG/HR PATCH TD SCH (16:40)
[2018-08-14] MEDS: SODIUM CHLORIDE 0.9% 1000ML 1,000 ML IVS PRN (19:58)
[2018-08-14] MEDS: traMADol HCL 50 MG TAB PO PRN (20:08)
[2018-08-14] MEDS: BUDESONIDE NEBS 0.5 MG/2 ML VIAL NEB SCH (21:08)
[2018-08-14] MEDS ORDERED: DEXTROSE 50% 25 GM/50 ML SYG IV PRN (21:26)
[2018-08-14] MEDS ORDERED: GLUCAGON INJ 1 MG VIAL SUBCU PRN (21:26)
[2018-08-14] MEDS: INSULIN LISPRO 100 UNITS/ML PEN SUBCU SCH (22:00)
[2018-08-15] MEDS: IPRATROPIUM/ALBUTEROL 3 ML VIAL INH SCH ×6 (04:58→21:06)
[2018-08-15] MEDS: IBUPROFEN 400 MG TAB PO PRN ×2 (06:27→18:02)
[2018-08-15] MEDS ORDERED: INSULIN LISPRO 100 UNITS/ML PEN SUBCU SCH ×2 (07:00)
[2018-08-15] MEDS ORDERED: SODIUM CHLORIDE 0.9% 250ML 250 ML ONE (07:57)
[2018-08-15] MEDS ORDERED: AZITHROMYCIN IV 500 MG VIAL IVPB ONE (07:58)
[2018-08-15] MEDS: BUDESONIDE NEBS 0.5 MG/2 ML VIAL NEB SCH ×2 (08:04→21:06)
[2018-08-15] MEDS: INSULIN LISPRO 100 UNITS/ML PEN SUBCU SCH ×7 (08:04→23:33)
[2018-08-15] MEDS: metFORMIN HCL 500 MG TAB PO SCH ×2 (08:29→17:13)
[2018-08-15] MEDS: AZITHROMYCIN IV 500 MG in SODIUM CHLORIDE 0.9% 250ML 250 ML IVPB SCH (08:29)
[2018-08-15] MEDS: OSELTAMIVIR 75 MG CAP PO SCH (08:29)
[2018-08-15] MEDS: SERTRALINE HCL 50 MG TAB PO SCH (08:30)
[2018-08-15] MEDS: traMADol HCL 50 MG TAB PO PRN (08:30)
[2018-08-15] MEDS: LISINOPRIL 10 MG TAB PO SCH (08:31)
[2018-08-15] MEDS: ALPRAZolam 0.25 MG TAB PO PRN ×2 (08:32→22:05)
--- NOTE | 2018-08-15 10:11 | PN ---
SUPERVISING PHYSICIAN: Jas Dallas MD DATE: 08/14/18 SUBJECTIVE: The patient notes that she feels like she is much more short of breath today than previous day, although she says it comes and goes from day to day. She is still having a significant amount of body aches. She has been afebrile since the with T-max temperature being around 99.1 She is showing some hypertension and possibly this might be resulting in some of her continued shortness of breath as her x-ray did show some possible pulmonary edema, although she has had good urinary output. She has had no chest pain, no palpitations. OBJECTIVE: VITAL SIGNS: Temperature 98.2, pulse 77, blood pressure 163/93, respirations 18, saturation 94% on nasal cannula at rest. I&O: negative balance of 16 with 36 with 3414 in and 5050 out. She has had several bowel movements today. Weight 98.7 kg. GENERAL: The patient is alert, does appear ill and obviously does not feel good but is in no distress. CHEST: Lung sounds continue with some expiratory wheezing more so in the upper apices and significantly decreased throughout. HEART: Regular rate and rhythm. ABDOMEN: Soft, non-tender, positive bowel sounds. NEURO: Alert and oriented x3. EXTREMITIES: No cyanosis, clubbing, or edema. LABORATORY: CBC shows to be at 5,000, hemoglobin 13.1, hematocrit 39.8, platelet count 168,000, differential shows to be without a left shift. Chemistries show a low potassium at 3.5, BUN less than 5, creatinine 0.4, glucose has been between 113 and 178. Calcium 8.7, magnesium 1.8. MICROBIOLOGY: MRSA culture shows to be negative. Culture results on the sputum showed further report to follow on intubation. RADIOLOGY: Chest x-ray, 2-view chest per radiology interpretation showed mild pulmonary edema, otherwise unremarkable. ASSESSMENT: 1. Sepsis secondary to bilateral pneumonia and influenza with patient being febrile, tachycardiac, showing slow clinical improvement with treatment. 2. Influenza type A infection complicating #1. 3. Hypoxemic respiratory failure secondary to #1 and #2 showing slow clinical improvement. 4. Questionable patient underwent edema with no history of congestive heart failure or cardiac history, possible from complications from the underlying upper respiratory infection and exacerbated by hypertension with no echocardiogram available for review. 5. Diabetes mellitus, type 2, controlled. 6. Anxiety. 7. Chronic narcotic dependence requiring slow taper to get her off [place] and on Tramadol prior to discharge. PLAN: She is doing okay with the [place] taper and the Tramadol. Her lung sounds today, although I did not listen to her in previous days, are pretty bad in my opinion and I feel like she may be a little bit fluid overloaded, although she is not getting IV fluids to a significant amount but in looking at her x-ray certainly shows some pulmonary edema and she does have some hypertension which could be contributing to some of her respiratory issues, to some degree cor pulmonale effect I suppose. We will try to see if we can get some results with Nitro and decrease some preload. I will also put her on some lisinopril to get her blood pressure better controlled. I will go ahead and give her a single dose of Solu-Medrol since she is tight and obviously wheezing and will put her on a sliding scale and some coverage to better control her blood sugars as needed. Will continue with antibiotic coverage and aggressive pulmonary hygiene and hopefully be able to get the patient up and able to ambulate to further assess her oxygenation needs prior to discharge in anticipation of hopefully being able to discharge in the next 24 to 48 hours, although she is showing slow clinical improvement. She certainly will need to stop smoking and we discussed this at length today. We also discussed her transition from [place] to Tramadol. Will continue with that current plan of care and hopefully will transition soon to outpatient management. Until then, we will continue to monitor and treat appropriately. [facility][id number] [facility]
[2018-08-15] MEDS ORDERED: FUROSEMIDE INJ 40 MG/4 ML VIAL IV ONE (10:17)
[2018-08-15] MEDS: ENOXAPARIN SODIUM 40 MG/0.4 ML SYG SUBCU SCH (10:42)
[2018-08-15] MEDS ORDERED: cefTRIAXone SODIUM 1 GM VIAL ONE (11:19)
[2018-08-15] MEDS ORDERED: SODIUM CHL 0.9% 50ML MIN-BAG+ 50 ML IVPB ONE (11:19)
[2018-08-15] MEDS: cefTRIAXone SODIUM 1 GM in SODIUM CHL 0.9% 50ML MIN-BAG+ 50 ML IVPB SCH (12:10)
[2018-08-15] MEDS: NITROGLYCERIN 0.2 MG/HR PATCH TD SCH (17:13)
[2018-08-15] MEDS ORDERED: SODIUM CHLORIDE 0.9% (FLUSH) 10 ML SYG IV ONE (17:47)
--- NOTE | 2018-08-15 23:27 | PN ---
DATE: 08/15/18 SUPERVISING PHYSICIAN: Jas Dallas M.D. SUBJECTIVE: Ms. Yanez notes that she feels much better today. She has actually been up watching TV and has eaten fairly well. She notes that her breathing has improved dramatically after getting better control of her blood pressure. OBJECTIVE: VITAL SIGNS: Temperature 99.1, pulse 88, blood pressure 130/80, respirations 18, satting 88% on nasal cannula, up to 95% on nasal cannula at rest. I's and O's show a negative balance of 1636 with 3414 in, 5050 out. Weight is 98.1 kg. CHEST: Lung sounds are much improved in regard to aeration. There is no obvious wheezing. They are still diminished towards the bases. HEART: Regular rate and rhythm. ABDOMEN: Obese but soft, non-tender. Positive bowel sounds. EXTREMITIES: Without any clubbing, cyanosis or edema. NEUROLOGIC: She is alert and oriented times three. LABORATORY: Blood sugars are between 128 and 341. BNP was 79. RADIOLOGY: No additional radiographic studies today. ASSESSMENT: 1. Sepsis secondary to bilateral pneumonia and influenza improving with antivirals and antibiotics. 2. Influenza A infection complicating #1. 3. Hypoxemic respiratory failure on admission secondary to #1 and #2 showing good but slow clinical improvement. 4. Questionable pulmonary edema with no actual history of congestive heart failure but normal BNP, but responding well to Lasix, additional antihypertensives and Nitro. 5. Diabetes mellitus, type 2, controlled. 6. Anxiety. 7. Chronic narcotic dependence slowly tapered off [place] and onto Tramadol prior to discharge. 8. Hypertension with no previous diagnosis, not any any antihypertensives but responding well to Lisinopril and Nitro topically. PLAN: She has finished a course of Tamiflu. Will continue with antibiotics to include Rocephin and azithromycin. Will plan to do a chest x-ray in the morning as well as repeat her labs. She did show good improvement with better control of her blood pressure with Lisinopril and some Nitro. Will continue to taper her off Nitro as her blood pressure continues to improve. I did give her some Lasix which she responded to well. Again, will continue to monitor and treat as needed. Until she can transition to outpatient management, will hopefully be able to discharge later tomorrow or at least by Thursday. On discharge she will need to be discharged with a prescription for Tramadol as well as Lisinopril for blood pressure control. She will need close clinical followup with her primary care provider which is Dr. Ashby. #[id number] [facility]
[2018-08-16] MEDS: IPRATROPIUM/ALBUTEROL 3 ML VIAL INH SCH ×5 (04:00→16:00)
[2018-08-16] MEDS ORDERED: REMOVE OLD PATCH TOP SCH (04:30)
[2018-08-16] MEDS: traMADol HCL 50 MG TAB PO PRN (04:38)
[2018-08-16 06:54] VITALS: BP 152/88; TEMP 98.4
[2018-08-16] MEDS: INSULIN LISPRO 100 UNITS/ML PEN SUBCU SCH ×4 (08:00→12:03)
[2018-08-16] MEDS ORDERED: SODIUM CHL 0.9% 50ML MIN-BAG+ 50 ML IVPB ONE (08:18)
[2018-08-16] MEDS ORDERED: cefTRIAXone SODIUM 1 GM VIAL ONE (08:19)
[2018-08-16] MEDS: BUDESONIDE NEBS 0.5 MG/2 ML VIAL NEB SCH (09:02)
[2018-08-16] MEDS: metFORMIN HCL 500 MG TAB PO SCH (09:04)
[2018-08-16] MEDS: SERTRALINE HCL 50 MG TAB PO SCH (09:05)
[2018-08-16] MEDS: LISINOPRIL 10 MG TAB PO SCH (09:05)
[2018-08-16] MEDS: cefTRIAXone SODIUM 1 GM in SODIUM CHL 0.9% 50ML MIN-BAG+ 50 ML IVPB SCH (11:53)
[2018-08-16] MEDS: ENOXAPARIN SODIUM 40 MG/0.4 ML SYG SUBCU SCH (11:53)
[2018-08-16] MEDS: IV SET AND CAP CHANGE INJ INJ SCH (12:19)
[2018-08-16 18:50] VITALS: O2SAT 96
--- NOTE | 2018-08-26 14:09 | DS ---
SUPERVISING PHYSICIAN: Soto Kim MD ADMISSION DIAGNOSIS: 1. Acute bronchitis. 2. Influenza type A. 3. Hypoxemic respiratory failure. 4. Diabetes mellitus, type 2. DISCHARGE DIAGNOSIS: 1. Sepsis secondary to bilateral pneumonia and influenza improving with antivirals and antibiotics. 2. Influenza A infection complicating #1. 3. Hypoxemic respiratory failure on admission secondary to #1 and #2 showing good but slow clinical improvement. 4. Questionable pulmonary edema with no actual history of congestive heart failure but normal BNP, but responding well to Lasix, additional antihypertensives and Nitro. 5. Diabetes mellitus, type 2, controlled. 6. Anxiety. 7. Chronic narcotic dependence slowly tapered off [place] and onto Tramadol prior to discharge. 8. Hypertension with no previous diagnosis, not any any antihypertensives but responding well to Lisinopril and Nitro topically. REASON FOR HOSPITALIZATION: This is a 53-year-old female who came to the Emergency Room early this morning due to shortness of breath, fever and body aches over the last 24 hours or so. She states yesterday is when she started feeling ill. She states her fever had been up as high as 103. She states her boyfriend had flu for the last 10 days or so. When she came in, she was noted to be hypoxic with O2 saturation anywhere from 80% to 86%. The patient has a history of smoking usually one pack per day, however, starting with the New Year, she has gone down to about one cigarette per day. Her labs were reviewed and she has a normal white count, but she does have a left shift of 87%. She has a normal lactate at 1.2. CK is elevated at 923. Sodium 130, potassium 4.0, chloride 96, CO2 25. BUN and creatinine are normal. Glucose elevated at 276. Calcium 8.7. Due to the hypoxia, she was referred for admission. At time of examination, the patient is visibly dyspneic, but alert and oriented and pleasant. LABORATORY: White count on admission was 9,000. Discharge was 5,000. Hemoglobin and hematocrit were stable and at discharge ewer 13.1 and 39, respectively. Platelet count 116,000. Differential showed slight shift on admission, resolved prior to discharge. Coagulation studies showed slightly elevated D-dimer at 0.5. PT and PTT were normal. Blood gas analysis on admission showed pH 7.36, pCO2 47, pO2 61, bicarb 25, saturation 90%. Chemistries at time of admission showed sodium 130, potassium 4.0. At discharge, sodium had normalized to 139, potassium 3.1, BUN normal through the entire hospitalization and at discharge was 11, creatinine within normal limits and at discharge was 0.4. Blood sugars were fairly elevated, but stable between 120 and 305. Lactic acid on admission was 1.2, calcium 8.7. At discharge, calcium was 8.6. Magnesium was normal at 1.8 at discharge. Liver functions were normal. Troponin was less than 0.02 on admission. BNP normal at 44. MICROBIOLOGY: Blood culture remained negative after 5 days. Final sputum culture showed moderate normal respiratory bashir. MRSA surveillance culture was negative. RADIOLOGY: Chest x-ray in the Emergency Room prior to admission per radiologic interpretation of two-view chest showed no acute cardiopulmonary process. She had stable x-rays through hospitalization. Last x-ray on 08/14/18 per radiologic interpretation of two-view chest showed mild pulmonary edema, otherwise unremarkable. HOSPITAL COURSE: Ms. Yanez was admitted as noted above for sepsis, influenza A and hypoxic respiratory failure with questionable congestive heart failure and edema. She was treated with antibiotics and antivirals with Tamiflu. She was given IV fluids and Lasix. She showed good response to treatment. On the morning of discharge, she felt well enough to discharge home to continue with outpatient management. PLAN: Ms. Yanez was discharged on 08/16/18 with instructions to followup with Dr. Ashby and [facility]. She was to resume home medications as instructed and again encouraged to stop smoking. She was to take new medications as directed and return to the hospital should she have any worsening or concerning symptoms. Diet at discharge was regular diet as tolerated. Activity to increase as tolerated. Medications prescribed at discharge include: 1. Tramadol 50 mg q.8h., #30. 2. Albuterol sulfate inhaler 2 puffs inhaled as needed, #1 inhaler, no refills. 3. Lisinopril 10 mg daily, 30, no refills. She was able to titrate off her medications including [place] and was doing well with tramadol. She was instructed to manage her pain with Tylenol and Motrin as much as possible and then tramadol as needed as she was not going to be able to refill her [place]. She understood this and was to followup with Dr. Ashby and [facility] to followup with possible refilling her [place]. DISPOSITION: The patient was discharged home. CONDITION AT DISCHARGE: Stable and improving. #[id number] MTDD
== END 2018-08-16 17:00 | disposition home or self-care (01) | DRG 871 ==
LOC: ER 05:19 → MS 08:41
PROVIDERS: ADMIT Nurse Practitioner; ATTEND Nurse Practitioner Family
DX: A41.89 Other specified sepsis (principal); J96.91 Respiratory failure, unspecified with hypoxia; J10.00 Influenza due to other identified influenza virus with unspecified type of pneumonia; E86.0 Dehydration; E11.9 Type 2 diabetes mellitus without complications; F41.9 Anxiety disorder, unspecified; I10 Essential (primary) hypertension; M17.12 Unilateral primary osteoarthritis, left knee; F17.210 Nicotine dependence, cigarettes, uncomplicated; E66.9 Obesity, unspecified; Z79.891 Long term (current) use of opiate analgesic; Z96.651 Presence of right artificial knee joint; Z79.84 Long term (current) use of oral hypoglycemic drugs; Z88.1 Allergy status to other antibiotic agents; Z88.0 Allergy status to penicillin

== ENCOUNTER 2019-08-31 19:55 | Emergency (ER) | payer OTHER, SELFPAY ==
[2019-08-31] MEDS ORDERED: ONDANSETRON ODT 8 MG TAB SL ONE (20:17)
[2019-08-31] MEDS ORDERED: ALUM & MAG HYDROX-SIMETHICONE 30 ML, LIDOCAINE VISCOUS 2% 15 ML PO ONE ×2 (20:17)
[2019-08-31] MEDS ORDERED: SODIUM CHLORIDE 0.9% 1000ML 1,000 ML IVS ONE ×2 (20:17→21:50)
[2019-08-31] MEDS ORDERED: ASPIRIN TABLET 325 MG TAB PO ONE (20:17)
[2019-08-31] MEDS ORDERED: ALUM & MAG HYDROX-SIMETHICONE 30 ML UD ONE (20:30)
[2019-08-31] MEDS ORDERED: LIDOCAINE HCL 2% (MOUTH-THROAT) 15 ML UD ONE (20:30)
--- NOTE | 2019-08-31 20:50 | RAD ---
EXAM DESCRIPTION: Chest,2 Views CLINICAL HISTORY:54 years Female, chest tightness Comparison: Chest radiograph dated August 14, 2018 FINDINGS: No focal lung consolidation. No pleural effusion. No pneumothorax. Cardiomediastinal silhouette is within normal limits. No acute osseous abnormality. IMPRESSION: No acute cardiopulmonary disease. Electronically signed by: Peterson Vides DO 08/31/2019 8:49 PM [employer]
[2019-08-31] MEDS ORDERED: IPRATROPIUM/ALBUTEROL 3 ML VIAL NEB ONE (22:03)
[2019-08-31 23:30] VITALS: BP 114/73; TEMP 98.5; O2SAT 100
--- NOTE | 2019-08-31 23:34 | ED.PDOC ---
History of Present Illness - General Chief Complaint: Diabetic Complaint Stated Complaint: elevated BS, headache, dizzy, chest discomfort Time Seen by Provider: 08/31/19 20:04 Source: patient Exam Limitations: no limitations - History of Present Illness Initial Comments: A feeling of intermittent sharp stabbing parasternal chest pains at the site of the previous surgery. She is also been having increasing body aches and fatigue as well as something of a feeling of shortness of breath. The patient has had markedly elevated blood sugars over the last 3 days averaging somewhere around 400-500. She only takes metformin for her blood sugars. Mild nausea but no vomiting. No definite fever. Pains are worse with movement. Not with aerobic activity. She has had increased urinary frequency. Timing/Duration: 24 hours Severity: moderate Improving Factors: immobilization Worsening Factors: movement Associated Symptoms: chest pain, headaches, loss of appetite, malaise, nausea/vomiting, shortness of breath Allergies/Adverse Reactions: Allergies Levofloxacin [From Levaquin] Allergy (Intermediate, Verified 08/10/18 12:18) Hives Penicillin G Allergy (Intermediate, Verified 08/31/19 20:13) Rash Home Medications: Ambulatory Orders Metformin HCl [Metformin Hydrochloride] 1,000 mg PO BID 08/10/18 Sucralfate Tab [Carafate Tab] 1 gm PO QID #30 tab 08/31/19 Review of Systems - Review of Systems Constitutional: States: malaise EENTM: States: no symptoms reported Respiratory: States: short of breath Cardiology: States: chest pain Gastrointestinal/Abdominal: States: nausea Genitourinary: States: no symptoms reported Musculoskeletal: States: other - Body aches Skin: States: no symptoms reported Neurological: States: headache Endocrine: States: increased thirst, increased urine All other Systems: No Change from Baseline Past Medical History (General) - Patient Medical History Hx Seizures: No Hx Stroke: No Hx Dementia: No Hx Asthma: No Hx of COPD: No Hx Cardiac Disorders: No Hx Congestive Heart Failure: No Hx Pacemaker: No Hx Hypertension: No Hx Thyroid Disease: No Hx Diabetes: Yes Hx Gastroesophageal Reflux: No Hx Renal Disease: No Hx Cancer: No Hx of HIV: No Hx Hepatitis C: No Hx MRSA: Yes - wound MRSA Source:: Wound Surgical History: Hysterectomy - Vaccination History Hx Tetanus, Diphtheria Vaccination: Yes Hx Influenza Vaccination: No Hx Pneumococcal Vaccination: Yes - Social History Hx Tobacco Use: Yes Hx Alcohol Use: No Hx Substance Use: No Hx Substance Use Treatment: No Hx Depression: No Hx Physical Abuse: No Hx Emotional Abuse: No - Female History Patient : No Family Medical History - Family History Mother Family History: No Known Living Status: Still Living Hx Family Diabetes: Yes - multiple family members Hx Family Cancer: Yes - throat-dad Physical Exam - Physical Exam General Appearance: Alert, No apparent distress Eye Exam: bilateral normal Ears, Nose, Throat: hearing grossly normal, normal ENT inspection, normal pharynx Neck: full range of motion, supple Respiratory: normal breath sounds, no respiratory distress, no accessory muscle use, respiratory distress Cardiovascular/Chest: normal peripheral pulses, regular rate, rhythm, no edema Peripheral Pulses: radial,right: 2+, radial,left: 2+, dorsalis pedis,right: 2+, dorsalis pedis,left: 2+ Gastrointestinal/Abdominal: non tender, soft Rectal Exam: deferred Back Exam: no CVA tenderness, no vertebral tenderness Extremity: normal range of motion, non-tender, normal inspection, no pedal edema, normal capillary refill 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 Normal axis. Normal R wave progression. No ST segment or T wave changes indicative of acute ischemia. Mild first-degree AV block. Mildly prolonged QT interval. Chest x-ray shows no acute pathology. Laboratory Results - last 24 hr 08/31/19 08/31/19 08/31/19 20:20 20:43 20:43 WBC 8.1 RBC 4.90 Hgb 14.4 Hct 43.0 MCV 87.8 MCH 29.3 MCHC 33.4 RDW 14.6 H Plt Count 206 MPV 8.4 Absolute Neuts (auto) 4.40 Absolute Lymphs (auto) 3.00 Absolute Monos (auto) 0.50 Absolute Eos (auto) 0.20 Absolute Basos (auto) 0.10 Neutrophils % 54.4 Lymphocytes % 36.4 Monocytes % 5.8 Eosinophils % 2.6 Basophils % 0.8 PT INR PTT (SP) D-Dimer, Quantitative Sodium 135 Potassium 3.7 Chloride 102 Carbon Dioxide 28 Anion Gap 8.7 L BUN 29 H Creatinine 0.78 BUN/Creatinine Ratio 37.2 H POC Glucose 200 H Random Glucose 241 H Serum Osmolality 283.8 Calcium 9.7 Magnesium Total Bilirubin 0.4 AST 40 ALT 41 Alkaline Phosphatase 70 Creatine Kinase 131 CK-MB (CK-2) 3.0 CK-MB (CK-2) % Not Reportable Troponin I < 0.02 B-Natriuretic Peptide 5.9 Serum Total Protein 7.5 Albumin 3.6 Globulin 3.9 H Albumin/Globulin Ratio 0.9 L TSH Urine Color Urine Appearance Urine pH Ur Specific [place] Urine Protein Urine Glucose (UA) Urine Ketones Urine Blood Urine Nitrite Urine Bilirubin Urine Urobilinogen Ur Leukocyte Esterase Urine RBC Urine WBC Ur Epithelial Cells Urine Bacteria 08/31/19 08/31/19 08/31/19 20:43 20:43 21:10 WBC RBC Hgb Hct MCV MCH MCHC RDW Plt Count MPV Absolute Neuts (auto) Absolute Lymphs (auto) Absolute Monos (auto) Absolute Eos (auto) Absolute Basos (auto) Neutrophils % Lymphocytes % Monocytes % Eosinophils % Basophils % PT 8.9 L INR 0.89 L PTT (SP) 20.7 L D-Dimer, Quantitative 287 Sodium Potassium Chloride Carbon Dioxide Anion Gap BUN Creatinine BUN/Creatinine Ratio POC Glucose Random Glucose Serum Osmolality Calcium Magnesium 1.6 L Total Bilirubin AST ALT Alkaline Phosphatase Creatine Kinase CK-MB (CK-2) CK-MB (CK-2) % Troponin I B-Natriuretic Peptide Serum Total Protein Albumin Globulin Albumin/Globulin Ratio TSH 2.33 Urine Color Yellow Urine Appearance Clear Urine pH 5.5 Ur Specific [place] >= 1.030 Urine Protein 30 Urine Glucose (UA) 100 H Urine Ketones Negative Urine Blood Negative Urine Nitrite Negative Urine Bilirubin Negative Urine Urobilinogen 0.2 Ur Leukocyte Esterase Negative Urine RBC 0 Urine WBC 0-1 Ur Epithelial Cells 1-3 Urine Bacteria Rare Progress - Progress Progress: 08/31/19 23:36 The patient is a 54-year-old female presenting with symptoms most likely related to significant dehydration from uncontrolled diabetes and hyperglycemia. The patient received 2 L of normal saline along with a breathing treatment and was feeling much better at time of discharge. Believe chest pain is musculoskeletal from old procedure site. No evidence of any abnormality on EKG, chest x-ray or cardiac enzymes. The patient needs to discuss with her primary care doctor her longer term diabetes management as she is obviously been uncontrolled over the past couple of days. I am going to write the patient a weeks worth of Carafate as the metformin has likely worsened her gastritis. She does need to follow her blood sugars closely and keep her self well-hydrated. ER warnings are given for any acute worsening. randall ocasio [phone] Departure - Departure Clinical Impression: Dehydration, moderate Uncontrolled diabetes mellitus Qualifiers: Diabetes mellitus type: type 2 Glycemic state: with hyperglycemia Qualified Code(s): E11.65 - Type 2 diabetes mellitus with hyperglycemia Disposition: Discharge to Home or Self Care Condition: Fair Departure Forms: ED Discharge - Pt. Copy, Patient Portal Self Enrollment Diet: diabetic diet Activity: increase activity as tolerated Referrals: ЕКАТЕРИНА BRADFORD [Primary Care Provider] - 1-2 Weeks Prescriptions: Sucralfate Tab [Carafate Tab] 1 gm PO QID #30 tab Home Medications: Ambulatory Orders Metformin HCl [Metformin Hydrochloride] 1,000 mg PO BID 08/10/18 Sucralfate Tab [Carafate Tab] 1 gm PO QID #30 tab 08/31/19 Additional Instructions: The patient is a 54-year-old female presenting with symptoms most likely related to significant dehydration from uncontrolled diabetes and hyperglycemia. The patient received 2 L of normal saline along with a breathing treatment and was feeling much better at time of discharge. Believe chest pain is musculoskeletal from old procedure site. No evidence of any abnormality on EKG, chest x-ray or cardiac enzymes. The patient needs to discuss with her primary care doctor her longer term diabetes management as she is obviously been uncontrolled over the past couple of days. I am going to write the patient a weeks worth of Carafate as the metformin has likely worsened her gastritis. She does need to follow her blood sugars closely and keep her self well-hydrated. ER warnings are given for any acute worsening.
== END 2019-08-31 23:51 | disposition home or self-care (01) ==
LOC: ER 19:55
DX: E86.0 Dehydration (principal); E11.65 Type 2 diabetes mellitus with hyperglycemia; R11.0 Nausea; R06.02 Shortness of breath; Z79.899 Other long term (current) drug therapy; Z79.84 Long term (current) use of oral hypoglycemic drugs; Z87.891 Personal history of nicotine dependence; Z88.1 Allergy status to other antibiotic agents; Z88.0 Allergy status to penicillin
CPT/HCPCS: 36415; 36416; 71046; 80053; 81001; 82550; 82553; 82948; 83735; 83880; 84443; 84484; 85025; 85379; 85610; 85730; 87502; 93005; 94640; J7030; J7620

== ENCOUNTER 2020-08-31 11:49 | Emergency (ER) | payer SELFPAY ==
--- NOTE | 2020-08-31 12:22 | RAD ---
EXAM DESCRIPTION: X-ray Forearm,Left two views CLINICAL HISTORY: 55 years Female, fall on ice COMPARISON: None. FINDINGS: Left forearm two x-ray views. No fracture. No dislocation. Normal bony mineralization. Slight deformity of the distal diaphysis of the left radius may indicate previously healed fracture. 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 IMPRESSION: No acute fracture or dislocation. Electronically signed by: Kiran Castro MD 08/31/2020 12:20 PM [facility]
--- NOTE | 2020-08-31 12:23 | RAD ---
EXAM DESCRIPTION: Humerus,Left x-ray two views CLINICAL HISTORY: 55 years Female, fall on ice COMPARISON: None. FINDINGS: Two-view x-ray views of the left humerus. Degenerative narrowing of the AC joint. Normal glenohumeral alignment. No fracture of the humerus no dislocation. Normal bony mineralization. IMPRESSION: Negative for fracture. Electronically signed by: Kiran Castro MD 08/31/2020 12:21 PM [facility]
--- NOTE | 2020-08-31 12:56 | CT ---
EXAM DESCRIPTION: Head CLINICAL HISTORY: 55 years Female, fall on ice COMPARISON: None. TECHNIQUE: Axial images obtained from the skull base to the vertex without intravenous contrast with images. Coronal and sagittal reformations provided. This exam was performed according to our departmental dose-optimization program, which includes automated exposure control, adjustment of the mA and/or kV according to patient size and/or use of iterative reconstruction technique. Time Last Seen Well (If known) for Code Stroke: n/a FINDINGS: Brain Parenchyma, ventricles, meninges, and extra-axial spaces: Normal ventricles and sulci. Normal attenuation of brain parenchyma. No acute intracranial hemorrhage. No abnormal extra-axial fluid collection. Vascular: Atherosclerosis is within the carotid siphons. Calvarium, paranasal sinuses, mastoids, and orbits: Calvarium intact. Visualized paranasal sinuses and mastoid air cells clear. Orbits unremarkable. IMPRESSION: 1. No acute intracranial abnormality. Electronically signed by: Wayne Sotomayor MD 08/31/2020 12:[address] [facility]
--- NOTE | 2020-08-31 13:02 | ED.PDOC ---
History of Present Illness - General Chief Complaint: Trauma Stated Complaint: L elbow/foprearm/wrist pain, and hit head Time Seen by Provider: 08/31/20 11:56 Source: patient Exam Limitations: no limitations - History of Present Illness Initial Comments: The patient is a 55-year-old female presented emergency room secondary to pain after having fallen while slipping on ice leaving a restaurant. The patient is having some pain around her left elbow and her left forearm. She additionally fell backwards and hit her head. No loss of consciousness. No significant hematoma. She is not on blood thinners. No nausea or vomiting. No neck pain. No other injuries. No lacerations. No visible bruising. Timing/Duration: 1-3 hours Severity: moderate Improving Factors: nothing Worsening Factors: movement Associated Symptoms: headaches Allergies/Adverse Reactions: Allergies Levofloxacin [From Levaquin] Allergy (Intermediate, Verified 08/31/20 12:29) Hives Penicillin G Allergy (Intermediate, Verified 08/31/20 12:29) Rash Home Medications: Ambulatory Orders Metformin HCl [Metformin Hydrochloride] 1,000 mg PO BID 08/10/18 Sucralfate Tab [Carafate Tab] 1 gm PO QID #30 tab 08/31/19 Review of Systems - Review of Systems Constitutional: States: no symptoms reported EENTM: States: no symptoms reported Respiratory: States: no symptoms reported Cardiology: States: no symptoms reported Gastrointestinal/Abdominal: States: no symptoms reported Genitourinary: States: no symptoms reported Musculoskeletal: States: see HPI Skin: States: no symptoms reported Neurological: States: headache Endocrine: States: no symptoms reported All other Systems: No Change from Baseline Past Medical History (General) - Patient Medical History Hx Seizures: No Hx Stroke: No Hx Dementia: No Hx Asthma: No Hx of COPD: No Hx Cardiac Disorders: No Hx Congestive Heart Failure: No Hx Pacemaker: No Hx Hypertension: No Hx Thyroid Disease: No Hx Diabetes: Yes Hx Gastroesophageal Reflux: No Hx Renal Disease: No Hx Cancer: No Hx of HIV: No Hx Hepatitis C: No Hx MRSA: Yes - wound MRSA Source:: Wound Surgical History: Hysterectomy - Vaccination History Hx Tetanus, Diphtheria Vaccination: Yes Hx Influenza Vaccination: No Hx Pneumococcal Vaccination: No - Social History Hx Tobacco Use: Yes Hx Alcohol Use: No Hx Substance Use: No Hx Substance Use Treatment: No Hx Depression: No Hx Physical Abuse: No Hx Emotional Abuse: No - Female History Patient is a Female of Child Bearing Age (10 -59 yrs old): Yes Patient : No - Hyst Family Medical History - Family History Mother Family History: No Known Living Status: Still Living Hx Family Diabetes: Yes - multiple family members Hx Family Cancer: Yes - throat-dad Physical Exam - Physical Exam General Appearance: Alert, Comfortable, No apparent distress Eye Exam: bilateral normal Ears, Nose, Throat: hearing grossly normal, normal pharynx Neck: non-tender, full range of motion, supple Respiratory: lungs clear, normal breath sounds, no respiratory distress, no accessory muscle use Cardiovascular/Chest: normal peripheral pulses, regular rate, rhythm, no edema Peripheral Pulses: radial,right: 2+, radial,left: 2+ Gastrointestinal/Abdominal: non tender, soft Rectal Exam: deferred Back Exam: no CVA tenderness, no vertebral tenderness Extremity: normal range of motion, no pedal edema, no calf tenderness, normal capillary refill, other - See history of present illness. 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 X-rays of the left humerus and forearm showed no evidence of any fracture or dislocation. CT scan of the head shows no evidence of acute pa thology either. The patient appears to have only sustained soft tissue damage due to the fall. Ambulate carefully. She needs to do range of motion exercises of the arm. She can take Motrin or Tylenol for the discomfort. Heat pad may prove beneficial over the next few days. ER warnings are given. Keep routine follow-up with primary care doctor. randall ocasio [phone] - EKG/XRAY/CT CT Ordered: Yes Departure - Departure Clinical Impression: Scalp contusion Fall from standing Qualifiers: Encounter type: initial encounter Qualified Code(s): W19.XXXA - Unspecified fall, initial encounter Disposition: Discharge to Home or Self Care Condition: Fair Departure Forms: ED Discharge - Pt. Copy, Patient Portal Self Enrollment Diet: regular diet Activity: increase activity as tolerated Referrals: ЕКАТЕРИНА BRADFORD [Primary Care Provider] - 1-2 Weeks Home Medications: Ambulatory Orders Metformin HCl [Metformin Hydrochloride] 1,000 mg PO BID 08/10/18 Sucralfate Tab [Carafate Tab] 1 gm PO QID #30 tab 08/31/19 Additional Instructions: The patient is a 55-year-old female presented to emergency room after a fall. X-rays of the left humerus and forearm showed no evidence of any fracture or dislocation. CT scan of the head shows no evidence of acute pathology either. The patient appears to have only sustained soft tissue damage due to the fall. Ambulate carefully. She needs to do range of motion exercises of the arm. She can take Motrin or Tylenol for the discomfort. Heat pad may prove beneficial over the next few days. ER warnings are given. Keep routine follow-up with primary care doctor.
[2020-08-31 13:14] VITALS: BP 158/96; TEMP 97.8; O2SAT 97
== END 2020-08-31 13:08 | disposition home or self-care (01) ==
LOC: ER 11:49
DX: S00.03XA Contusion of scalp, initial encounter (principal); M25.522 Pain in left elbow; M79.632 Pain in left forearm; E11.9 Type 2 diabetes mellitus without complications; W00.0XXA Fall on same level due to ice and snow, initial encounter; Y92.511 Restaurant or cafe as the place of occurrence of the external cause; Z79.899 Other long term (current) drug therapy; Z79.84 Long term (current) use of oral hypoglycemic drugs; Z88.1 Allergy status to other antibiotic agents; Z88.0 Allergy status to penicillin; Z87.891 Personal history of nicotine dependence